=== PATIENT | female | born 1985 | race Two or more races ===

== ENCOUNTER 2016-03-24 12:10 | Emergency (ER) | payer OTHER ==
[~2016-03-24] VITALS: Ht 157.5 cm; Wt 65.3 kg
[~2016-03-24 12:10] MED LIST: FLONASE1 SPRAYS NASAL; IBUPROFEN600 MG ORAL; LORATADINE10 M2 PO; POLYTRIM OP SOL10 ML OPHTHALM
[2016-03-24 12:40] VITALS: BP 97/63
[2016-03-24] MEDS ORDERED: IBUPROFEN600 MG ORAL (13:04)
[2016-03-24] MEDS ORDERED: PEPCID40 MG PO (13:04)
[2016-03-24 13:08] VITALS: BP 97/63
--- NOTE | 2016-03-24 13:58 | Emergency Room Report ---
History of Present Illness General Chief Complaint: Sore Throat Source: Patient Present Illness HPI The patient is a 30-year-old female presenting with sore throat and hoarse voice which began 3 days prior. The patient states that the pain is described as a 6/10 dull ache to the throat only. The patient also admits to subjective fevers. Patient denies any sick contacts recent travel. The patient denies N, V, rash, GARCIA, neck pain/stiffness, SOB, CP Allergies: Coded Allergies: No Known Allergies (Unverified , 07/23/14) Patient History Past Medical History: see triage record Pertinent Family History: none Last Menstrual Period: 03/12/16 Now: No Reviewed Nursing Documentation: PMH: Agreed, PSxH: Agreed Nursing Documentation-PMH Past Medical History: No Stated History Review of Systems All Other Systems: negative except mentioned in HPI Physical Exam Vital Signs Date Time Temp Pulse Resp B/P Pulse Ox O2 Delivery O2 Flow Rate FiO2 03/24/16 12:30 98.4 62 14 97/63 100 Room Air Sp02 EP Interpretation: reviewed, normal General Appearance: no apparent distress, alert, GCS 15, non-toxic Head: normocephalic, atraumatic Eyes: bilateral eye PERRL, bilateral eye normal inspection ENT: hearing grossly normal, normal pharynx, no angioedema, other - hoarse voice Neck: full range of motion, supple/symm/no masses Respiratory: chest non-tender, lungs clear, normal breath sounds, speaking full sentences Cardiovascular #1: regular rate, rhythm, no edema Gastrointestinal: normal bowel sounds, non tender, soft, non-distended, no guarding, no rebound Musculoskeletal: back normal, gait/station normal, normal range of motion, non- tender Neurologic: alert, oriented x3, responsive, motor strength/tone normal, sensory intact, speech normal Psychiatric: judgement/insight normal, memory normal, mood/affect normal, no suicidal/homicidal ideation Skin: normal color, no rash, warm/dry, well hydrated Lymphatic: no adenopathy Medical Decision Making PA Attestation Dr. Chamberlain is my supervising physician. Patient management was discussed with my supervising physician Diagnostic Impression: Primary Impression: Laryngitis, acute ER Course The patient is a 30-year-old female presenting with sore throat and hoarse voice which began 3 days prior Differential diagnosis include but not limited to pharyngitis, laryngitis, sinusitis, AOM, bronchitis, PNA PE: vitals WNL. HEENT: unremarkable. No tonsillar edema, erythema, or exudate. Uvula midline. No cervical lymphadenopathy. Lungs CTA bilat The pt is DC'ed home with a prescription for motrin and pepcid. The patient is advised this is most likely viral and will resolve on its own. ER precautions are given Last Vital Signs Date Time Temp Pulse Resp B/P Pulse Ox O2 Delivery O2 Flow Rate FiO2 03/24/16 12:40 98.4 62 14 97/63 100 Room Air Status: improved Disposition: HOME, SELF-CARE Condition: Improved Scripts Famotidine (PEPCID) 40 Mg Tablet 40 MG PO DAILY, #7 TAB 0 Refills Prov: KELLY CURRY 03/24/16 Ibuprofen* (MOTRIN*) 600 Mg Tablet 600 MG ORAL Q8H Y for For Pain, #30 TAB 0 Refills Prov: KELLY CURRY 03/24/16 Patient Instructions: Laryngitis, Sore Throat Additional Instructions: I discussed my findings with the patient. All questions and concerns have been answered. Treatment and medication compliance have been addressed. I advised the patient that they need to follow up with PMD in 3-5 days. Return to ED if pain remains or worsens, cough worsens or remains, you notice blood in your sputum, you notice wheezing, you experience a fever, or if needed for any reason. Patient verbalized understanding of discharge instructions. KELLY CURRY Mar 24, 2016 13:58
== END 2016-03-24 13:08 | disposition home or self-care (01) ==
LOC: EMR 12:35
DX: J04.0 Acute laryngitis (principal)
CPT/HCPCS: 99284

== ENCOUNTER 2016-07-24 17:07 | Emergency (ER) | payer SELFPAY ==
[~2016-07-24] VITALS: Ht 154.9 cm; Wt 67.1 kg
[~2016-07-24 17:07] MED LIST changes: +PEPCID40 MG PO
[2016-07-24 17:17] VITALS: BP 118/68
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
[2016-07-24] MEDS ORDERED: TdaP Vaccine 0.5ml Syr IM ONE (17:45)
[2016-07-24] MEDS ORDERED: Silver Sulfadiazine Cream 25gm TOPIC SCH (18:00)
[2016-07-24 18:10] VITALS: BP 118/68
== END 2016-07-24 18:10 | disposition home or self-care (01) ==
LOC: EMR 17:45
DX: T23.271A Burn of second degree of right wrist, initial encounter (principal); T24.211A Burn of second degree of right thigh, initial encounter; T31.0 Burns involving less than 10% of body surface; X10.0XXA Contact with hot drinks, initial encounter; Y92.019 Unspecified place in single-family (private) house as the place of occurrence of the external cause; Z23 Encounter for immunization
CPT/HCPCS: 90471; 90715; 96372; 99283

== ENCOUNTER 2017-10-20 11:57 | Emergency (ER) | payer MEDICAID ==
[~2017-10-20] VITALS: Ht 154.9 cm; Wt 70.3 kg
[2017-10-20] MEDS ORDERED: DiphenhydrAMINE 50mg/ml Inj IVP ONE (12:30)
[2017-10-20] MEDS ORDERED: Ketorolac 60mg Inj IM ONE (12:30)
[2017-10-20] MEDS ORDERED: Metoclopramide 10mg/2ml Inj IVP ONE (12:30)
[2017-10-20] MEDS ORDERED: Morphine Sulfate 4mg/ml Inj (IV USE ONLY) IVP ONE (12:30)
[2017-10-20 12:34] VITALS: BP 110/73
--- NOTE | 2017-10-20 13:22 | Diagnostic Imaging Report ---
Indication: Head trauma and headache Technique: Contiguous 5 mm thick transaxial imaging of the head obtained in a Siemens Sensation [address] scanner. Soft tissue and bone windows generated. Automatic Exposure Control was utilized. Total Dose length Product (DLP): 1344.[address] Dose Index Volume (CTDIvol): 70.38 mGy Comparison: none Findings: The size and configuration of the cortical sulci, basal cisterns, and ventricles are within normal limits for age. There is no mass effect, midline shift, or edema identified. There is no evidence of acute hemorrhage or abnormal intra-axial or extra-axial fluid collections. The bones and soft tissues are unremarkable. Impression: No mass effect, edema or acute bleed. The CT scanner at [facility] is accredited by the [employer] and the scans are performed using dose optimization techniques as appropriate to a performed exam including Automatic Exposure control.
[2017-10-20] MEDS ORDERED: NORCO 5-325 TA1 EACH ORAL (13:25)
[2017-10-20] MEDS ORDERED: CYCLOBENZAPRINE10 MG ORAL (13:25)
[2017-10-20] MEDS ORDERED: IBUPROFEN600 MG ORAL (13:25)
--- NOTE | 2017-10-20 13:27 | Diagnostic Imaging Report ---
Indication: Neck Pain Findings: 3 views of the cervical spine were obtained. There is suggestion of mild arthropathy within the right aspect of the mid cervical spine characterized by osteophytes and subchondral sclerosis. Minimal narrowing of intervertebral discs noted in the mid cervical spine C3-4, C4-5 and C5-6. Alignment is normal. No soft tissue swelling is present. Open-mouth view is negative. IMPRESSION: Degenerative spondylosis as described above
[2017-10-20 13:35] VITALS: BP 132/65
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
== END 2017-10-20 13:35 | disposition home or self-care (01) ==
LOC: EMR 12:27
DX: S16.1XXA Strain of muscle, fascia and tendon at neck level, initial encounter (principal); S09.90XA Unspecified injury of head, initial encounter; V49.88XA Car occupant (driver) (passenger) injured in other specified transport accidents, initial encounter; Y92.410 Unspecified street and highway as the place of occurrence of the external cause
CPT/HCPCS: 70450; 72040; 96372; 96374; 96375; 99284

== ENCOUNTER 2018-02-03 15:49 | Emergency (ER) | payer MEDICAID ==
[~2018-02-03] VITALS: Ht 154.9 cm; Wt 72.6 kg
[~2018-02-03 15:49] MED LIST changes: +CYCLOBENZAPRINE10 MG ORAL; +NORCO 5-325 TA1 EACH ORAL
[2018-02-03 15:51] VITALS: BP 104/72
[2018-02-03] MEDS ORDERED: NKM (15:55)
[2018-02-03] MEDS ORDERED: TYLENOL EXTRA500 MG ORAL (16:07)
--- NOTE | 2018-02-03 16:08 | Emergency Room Report ---
History of Present Illness General Chief Complaint: Sore Throat Source: Patient Present Illness HPI 32-year-old female patient presents the ER complaining of sore throat for the past day. Reports history of cough for the past 2 days. Reports no fever at home. States has not taken medication for relief of symptoms. Denies fever, chest pain, shortness of breath, vomiting. Reports cough is dry. Denies history of recent travel or calf pain. Reports contacts with similar symptoms at home. Denies other acute symptoms. Requesting work note. Allergies: Coded Allergies: No Known Allergies (Unverified , 07/23/14) Patient History Past Medical History: see triage record Reviewed Nursing Documentation: PMH: Agreed; PSxH: Agreed Nursing Documentation-PMH Past Medical History: No History, Except For Review of Systems All Other Systems: negative except mentioned in HPI Physical Exam Vital Signs Date Time Temp Pulse Resp B/P (MAP) Pulse Ox O2 Delivery O2 Flow Rate FiO2 02/03/18 15:51 98.4 73 17 104/72 99 Room Air Sp02 EP Interpretation: reviewed, normal General Appearance: well appearing, no apparent distress, alert, GCS 15, non- toxic Head: normocephalic, atraumatic Eyes: bilateral eye normal inspection, bilateral eye PERRL ENT: hearing grossly normal, normal pharynx, no angioedema, normal voice, TMs + canals normal, uvula midline, moist mucus membranes, other - Uvula midline Neck: full range of motion Respiratory: lungs clear, normal breath sounds, no rhonchi, no respiratory distress, no accessory muscle use, no wheezing, speaking full sentences Cardiovascular #1: regular rate, rhythm, no edema Musculoskeletal: back normal, digits/nails normal, gait/station normal, normal range of motion, non-tender Psychiatric: mood/affect normal Skin: no rash Lymphatic: no adenopathy Medical Decision Making PA Attestation Dr. Martinez is my supervising Physician whom patient management has been discussed with. Diagnostic Impression: Primary Impression: Sore throat ER Course Pt presents to ED c/o sore throat. DDX considered but are not limited to pharyngitis, laryngitis, URI, peritonsillar abscess, tonsillitis. Low suspicion for peritonsillar abscess, no neck stiffness, no hot potato voice , no stridor. Does not require imaging at this time. VITAL SIGNS are WNL, patient is afebrile. ER COURSE: Patient with viscous lidocaine. Physical exam shows no tonsillar exudates, no pharyngeal erythema or edema, no signs of infection. History of cough, denies history of fever, patient afebrile, no lymphadenopathy , low suspicion for bacterial etiology of symptoms, likely viral in nature. Does not require antibiotics at this time.. Patient reports feeling better following administration of medication Salt water gargles ER precautions given. DISCHARGE: Rx Tylenol for pain and fever symptoms At this time pt is stable for d/c to home. Patient is resting comfortably, in no acute distress, nontoxic appearing, talking without difficulty. Will provide with patient care instructions and any necessary prescriptions. Patient to take medication as instructed. Care plan and follow-up instructions provided. Patient questions asked and answered. Patient instructed to follow-up with primary care provider in 3 - 5 days. ER precautions given. Patient instructed to return to ER immediately for any new or worsening of symptoms including but not limited to intractable vomiting, difficulty breathing, inability to eat. - Please note that this Emergency Department Report was dictated using [employer] consultant technology software, occasionally this can lead to erroneous entry secondary to interpretation by the dictation equipment. Last Vital Signs Date Time Temp Pulse Resp B/P (MAP) Pulse Ox O2 Delivery O2 Flow Rate FiO2 02/03/18 15:51 98.4 73 17 104/72 99 Room Air Status: improved Disposition: HOME, SELF-CARE Condition: Stable Scripts Acetaminophen* (TYLENOL EXTRA STRENGTH*) 500 Mg Tablet 500 MG ORAL Q8H PRN for Prn Headache/Temp > 101, #30 TAB 0 Refills Prov: Rory Hendrix 02/03/18 Patient Instructions: Sore Throat Additional Instructions: Followup with primary care provider in 3 -5 days. Salt water gargles Take Tylenol for pain and fever symptoms Drink plenty of water. Take medications as directed. Patient questions asked and answered. ER precautions given, patient instructed to return to ER immediately for any new or worsening of symptoms including but not limited to intractable vomiting, difficulty breathing, inability to eat. Rory Hendrix Feb 03, 2018 16:08
[2018-02-03 16:15] VITALS: BP 104/72
[2018-02-03] MEDS ORDERED: Lidocaine 2% Visc 15ml soln ORAL ONE (16:15)
== END 2018-02-03 16:30 | disposition home or self-care (01) ==
LOC: EMR 16:06
DX: J02.9 Acute pharyngitis, unspecified (principal)
CPT/HCPCS: 99282

== ENCOUNTER 2018-04-26 14:39 | Emergency (ER) | payer MEDICAID ==
[~2018-04-26] VITALS: Ht 154.9 cm; Wt 63.5 kg
[~2018-04-26 14:39] MED LIST changes: +NKM; +TYLENOL EXTRA500 MG ORAL
--- NOTE | 2018-04-26 14:55 | NUR ---
ED Nurse Note: patient walked into ED c/o nausea and vomiting. patient c/o stomach flu.
[2018-04-26] MEDS ORDERED: TYLENOL EXTRA500 MG ORAL (15:13)
[2018-04-26] MEDS ORDERED: ZOFRAN4 M3 ORAL (15:13)
--- NOTE | 2018-04-26 15:13 | Emergency Room Report ---
History of Present Illness General Chief Complaint: Abdominal Pain Source: Patient Present Illness HPI 32-year-old female patient presents ER complaining of vomiting and diarrhea for the past 2 days. Reports symptoms began 2 days ago and have decreased in intensity since that time, last episode of vomiting earlier today. Denies blood in vomit or stool. Denies recent antibiotic use. Denies recent travel outside the country. Denies contacts with similar symptoms. Reports could be related to food, states she ate some ceviche. Denies other aggravating or relieving factors. States is been able to tolerate p.o. fluids since that time , was able to drink fluids earlier today without throwing up. Denies recent drug or alcohol use. Denies smoking marijuana. Contrary to triage report denies abdominal pain. Allergies: Coded Allergies: No Known Allergies (Unverified , 07/23/14) Patient History Past Medical History: see triage record Last Menstrual Period: 2 WEEKS AGO Reviewed Nursing Documentation: PMH: Agreed; PSxH: Agreed Review of Systems All Other Systems: negative except mentioned in HPI Physical Exam Vital Signs Date Time Temp Pulse Resp B/P (MAP) Pulse Ox O2 Delivery O2 Flow Rate FiO2 04/26/18 14:50 98.2 66 18 120/82 97 Room Air Sp02 EP Interpretation: reviewed, normal General Appearance: well appearing, no apparent distress, alert, GCS 15, non- toxic Head: normocephalic, atraumatic Eyes: bilateral eye normal inspection, bilateral eye PERRL ENT: hearing grossly normal, normal pharynx, no angioedema, normal voice, TMs + canals normal, uvula midline, moist mucus membranes Neck: full range of motion, no bony tend Respiratory: lungs clear, normal breath sounds, no rhonchi, no respiratory distress, no accessory muscle use, no wheezing, speaking full sentences Cardiovascular #1: regular rate, rhythm, no edema, normal capillary refill Gastrointestinal: normal bowel sounds, non tender, soft, no mass, non-distended , no guarding, no rebound, other - Negative Rovsing, negative obturator, negative Eddy Genitourinary: no CVA tenderness Musculoskeletal: back normal, digits/nails normal, gait/station normal, normal range of motion, non-tender Neurologic: alert, oriented x3, responsive, motor strength/tone normal, sensory intact Psychiatric: mood/affect normal Skin: no rash, normal turgor Lymphatic: no adenopathy Medical Decision Making PA Attestation Dr. Koroma is my supervising Physician whom patient management has been discussed with. Diagnostic Impression: Primary Impression: Vomiting and diarrhea ER Course Pt. presents to the ED c/o vomiting and diarrhea. Ddx considered but are not limited to viral syndrome, gastritis, enteritis, food poisoning, GERD, reflux. No abdominal tenderness to palpation Vital signs: are WNL, pt. is afebrile at discharge. ordered zofran. ED COURSE: Provide with Zofran. Physical exam benign, no abdominal TTP, negative Eddy sign, negative Rovsing, negative obturator, low suspicion for appendicitis or cholecystitis, does not require labs or imaging at this time. No fever, no blood in stool, no recent travel or hospitalizations, does not require abx treatment at this time. No signs of dehydration, moist mucus membranes, cap refill <2seconds, normal skin turgor. Patient able to tolerate p.o. fluids while in the ER. Patient instructed on BRAT diet. Patient instructed to remain hydrated, drink plenty of fluids. Patient questions asked and answered. Patient states understanding and agreement to treatment plan. ER precautions given, return to ER for new or worsening of symptoms. DISCHARGE: Rx provided for Tylenol for pain symptoms Rx provided for zofran At this time pt. is stable for d/c to home. Patient is resting comfortably, laughing, in no acute distress, nontoxic appearing. Will provide printed patient care instructions, and any necessary prescriptions. Care plan and follow up instructions have been discussed with the patient prior to discharge. Patient instructed to followup with PCP in 3-5 days. Patient reports understanding and agreement to treatment plan. Patient questions asked and answered. ER precautions given; patient instructed to return to ER for new or worsening of symptoms including but not limited to fever, intractable vomiting, severe abdominal pain, blood in stool. - Please note that this Emergency Department Report was dictated using [employer] doctor technology software, occasionally this can lead to erroneous entry secondary to interpretation by the dictation equipment. Last Vital Signs Date Time Temp Pulse Resp B/P (MAP) Pulse Ox O2 Delivery O2 Flow Rate FiO2 04/26/18 14:50 98.2 66 18 120/82 97 Room Air Status: improved Disposition: HOME, SELF-CARE Condition: Stable Scripts Acetaminophen* (TYLENOL EXTRA STRENGTH*) 500 Mg Tablet 500 MG ORAL Q8H PRN for Prn Headache/Temp > 101, #30 TAB 0 Refills Prov: Rory Hendrix 04/26/18 Ondansetron* (ZOFRAN*) 4 Mg Tablet 4 MG ORAL Q6H PRN for Nausea & Vomiting, #8 TAB Prov: Rory Hendrix 04/26/18 Patient Instructions: Diarrhea, Adult, [id number], Nausea and Vomiting, Adult , [id number] Additional Instructions: Followup with primary care provider in 3 -5 days. Clear liquid diet. Avoid spicy foods, avoid dairy foods. BRAT diet: bananas, rice, apple sauce, toast. Consider Immodium for diarrhea and Tylenol for pain symptoms. Take medications as directed. Patient questions asked and answered. ER precautions given, patient instructed to return to ER immediately for any new or worsening of symptoms. Rory Hendrix Apr 26, 2018 15:13
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
[2018-04-26 15:31] VITALS: BP 118/79
[2018-04-26 15:33] VITALS: BP 118/79
== END 2018-04-26 15:25 | disposition home or self-care (01) ==
LOC: EMR 15:11
DX: R11.10 Vomiting, unspecified (principal); R19.7 Diarrhea, unspecified
CPT/HCPCS: 99282